=== PATIENT | male | born 1960 | race Caucasian/White ===

== ENCOUNTER 2021-09-26 13:12 | Emergency (ER) | payer OTHER ==
--- NOTE | 2021-09-26 13:33 | EDM.PDOC ---
<Oliver Carney - Last Filed: 09/26/21 15:17> ED HPI GENERAL MEDICAL PROBLEM - General Chief Complaint: General Stated Complaint: DIZZY,WEAK Time Seen by Provider: 09/26/21 13:33 Source of Information: Reports: Patient History Limitations: Reports: No Limitations - History of Present Illness INITIAL COMMENTS - FREE TEXT/NARRATIVE: 61-year-old male history of bradycardia and Covid in the past. He was worked up in the past with echocardiogram stress test and Holter monitors that were within normal limits. Patient also states he had a CT PE done a few days ago that was negative. He came in today because he was at the store when he stood up and felt lightheaded. States he has been eating and drinking as normal and felt that last for few seconds and resolved. He denies any chest pain abdominal pain nausea vomiting or any other symptoms currently - Related Data Allergies Allergy/AdvReac Type Severity Reaction Status Date / Time No Known Allergies Allergy Verified 09/26/21 13:24 Home Meds: Home Meds Aspirin 325 mg PO 09/26/21 [History] Fluticasone Propionate [Flonase] 16 gm NS 09/26/21 [History] Pantoprazole 20 mg PO 09/26/21 [History] Sucralfate [Carafate] 1 gm PO 09/26/21 [History] guaiFENesin [Mucinex] 1,200 mg PO BID 09/26/21 [History] hydroCHLOROthiazide [Hydrochlorothiazide] 12.5 mg PO DAILY 09/26/21 [History] Past Medical History Cardiovascular History: Reports: Other (See Below) Other Cardiovascular History: Bradycardia Respiratory History: Reports: Other (See Below) Other Respiratory History: pt reports wears oxygen a night after covid - Infectious Disease History Infectious Disease History: Reports: None Social & Family History - Family History Family Medical History: No Pertinent Family History - Tobacco Use Tobacco Use Status *Q: Never Tobacco User - Recreational Drug Use Recreational Drug Use: No ED ROS GENERAL - Review of Systems Review Of Systems: See Below Constitutional: Reports: No Symptoms HEENT: Reports: No Symptoms Respiratory: Reports: No Symptoms Cardiovascular: Reports: Lightheadedness Endocrine: Reports: No Symptoms GI/Abdominal: Reports: No Symptoms : Reports: No Symptoms Musculoskeletal: Reports: No Symptoms Skin: Reports: No Symptoms Neurological: Reports: No Symptoms Psychiatric: Reports: No Symptoms Hematologic/Lymphatic: Reports: No Symptoms Immunologic: Reports: No Symptoms ED EXAM, GENERAL - Physical Exam Exam: See Below Exam Limited By: No Limitations General Appearance: Alert, WD/WN, No Apparent Distress Eye Exam: Bilateral Eye: EOMI, PERRL Nose: Normal Inspection, Normal Mucosa Head: Atraumatic Neck: Normal Inspection, Supple, Non-Tender Respiratory/Chest: No Respiratory Distress, Lungs Clear, Normal Breath Sounds Cardiovascular: Normal Peripheral Pulses, Regular Rate, Rhythm GI/Abdominal: Normal Bowel Sounds, Soft, Non-Tender Extremities: Normal Inspection, Normal Range of Motion Neurological: Alert, Oriented, Normal Cognition, Normal Gait Course - Re-Assessments/Exams Free Text/Narrative Re-Assessment/Exam: 09/26/21 14:53 Patient tropes negative x1 patient orthostatics normal. Patient already had extensive work-up with outpatient. If second set of troponins are negative patient will be discharged to follow-up with PMD 09/26/21 15:18 Patient will have second set of troponins done if negative can be discharged home. Patient feels a lot better has not had any lightheadedness here and orthostatic vital signs are normal. Departure - Departure Disposition: Home, Self-Care 01 Condition: Good Clinical Impression: Lightheaded, Hypokalemia - Discharge Information *PRESCRIPTION DRUG MONITORING PROGRAM REVIEWED*: Not Applicable *COPY OF PRESCRIPTION DRUG MONITORING REPORT IN PATIENT GHAZALA: Not Applicable Instructions: Dizziness, [id number], Hypokalemia Referrals: PCP,Not In Area [Primary Care Provider] - Forms: ED Department Discharge Additional Instructions: The following information is given to patients seen in the emergency department who are being discharged to home. This information is to outline your options for follow-up care. We provide all patients seen in our emergency department with a follow-up referral. You were seen today for feeling lightheaded. We checked your labs and vital signs and x-ray they're within normal limits. You had an extensive cardiac work- up as outpatient with stress test echoes CT scans to rule out pulmonary emboli already. We recommend you continue to follow with your primary care physician as needed. The need for follow-up, as well as the timing and circumstances, are variable depending upon the specifics of your emergency department visit. If you don't have a primary care physician on staff, we will provide you with a referral. We always advise you to contact your personal physician following an emergency department visit to inform them of the circumstance of the visit and for follow-up with them and/or the need for any referrals to a consulting specialist. The emergency department will also refer you to a specialist when appropriate. This referral assures that you have the opportunity for follow-up care with a specialist. All of these measure are taken in an effort to provide you with optimal care, which includes your follow-up. Under all circumstances we always encourage you to contact your private physician who remains a resource for coordinating your care. When calling for follow-up care, please make the office aware that this follow-up is from your recent emergency room visit. If for any reason you are refused follow-up, please contact the [facility] Emergency Department at and asked to speak to the emergency department charge nurse. Please follow up with your primary care physician. If you do not have a primary care physician, see below: [facility] [address] [place] [id number] [facility] [address] [place] [id number] Sepsis Event Note (ED) - Evaluation Sepsis Screening Result: No Definite Risk - Assessment/Plan Plan: Patient is a 61-year-old male presents today for feeling lightheaded. Patient has signs of cardiac work-up in the past been ruled out for DVTs has stress test echoes and Holter monitor. He had a history of having a slow heart rate. Heart rates in the 50s but goes up to the 60s and 70s. Will obtain orthostatic h ypertension labs x-rays and reassess. <Nikolai Best - Last Filed: 09/26/21 18:06> Course - Vital Signs Last Recorded V/S: Last Vital Signs Temp 97.5 F 09/26/21 13:18 Pulse 52 L 09/26/21 13:18 Resp 16 09/26/21 13:18 BP 149/83 H 09/26/21 13:18 Pulse Ox 99 09/26/21 13:18 Orthostatic Blood Pressure [ 108/71 Supine] Orthostatic Blood Pressure [ 116/78 Standing] Orthostatic Blood Pressure [ 116/87 Sitting] - Orders/Labs/Meds Orders: Active Orders 24 hr Category Date Time Status Orthostatic Vital Signs [RC] ASDIRECTED Care 09/26/21 13:53 Active Labs: Laboratory Tests 09/26/21 09/26/21 09/26/21 Range/Units 13:44 13:44 16:34 WBC 6.93 (4.0-11.0) K/uL RBC 5.55 (4.50-5.90) M/uL Hgb 16.4 (13.0-17.0) g/dL Hct 46.9 (38.0-50.0) % MCV 84.5 (80.0-98.0) fL MCH 29.5 (27.0-32.0) pg MCHC 35.0 (31.0-37.0) g/dL RDW Std Deviation 42.1 (28.0-62.0) fl RDW Coeff of Miguel 14 (11.0-15.0) % Plt Count 191 (150-400) K/uL MPV 9.70 (7.40-12.00) fL Neut % (Auto) 69.8 (48.0-80.0) % Lymph % (Auto) 19.0 (16.0-40.0) % [place] % (Auto) 9.5 (0.0-15.0) % Eos % (Auto) 1.4 (0.0-7.0) % Baso % (Auto) 0.3 (0.0-1.5) % Neut # (Auto) 4.8 (1.4-5.7) K/uL Lymph # (Auto) 1.3 (0.6-2.4) K/uL [place] # (Auto) 0.7 (0.0-0.8) K/uL Eos # (Auto) 0.1 (0.0-0.7) K/uL Baso # (Auto) 0.0 (0.0-0.1) K/uL Nucleated RBC % 0.0 /100WBC Nucleated RBCs # 0 K/uL Sodium 140 (136-148) mmol/L Potassium 3.1 L (3.5-5.1) mmol/L Chloride 101 (98-107) mmol/L Carbon Dioxide 31.0 (21.0-32.0) mmol/L BUN 16 (7.0-18.0) mg/dL Creatinine 1.1 (0.8-1.3) mg/dL Est Cr Clr Drug Dosing 79.36 mL/min Estimated GFR (MDRD) > 60.0 ml/min Glucose 144 H (74-106) mg/dL Calcium 9.5 (8.5-10.1) mg/dL Phosphorus 3.5 (2.6-4.7) mg/dL Magnesium 2.0 (1.8-2.4) mg/dL Total Bilirubin 1.4 H (0.2-1.0) mg/dL AST 11 L (15-37) IU/L ALT 21 (14-63) IU/L Alkaline Phosphatase 52 (46-116) U/L Creatine Kinase 82 (26-308) U/L Troponin I < 0.050 < 0.050 (0.000-0.056) ng/mL Total Protein 7.4 (6.4-8.2) g/dL Albumin 4.0 (3.4-5.0) g/dL Globulin 3.4 (2.6-4.0) g/dL Albumin/Globulin Ratio 1.2 (0.9-1.6) Meds: Medications Discontinued Medications Generic Name Dose Route Start Last Admin Trade Name Freq PRN Reason Stop Dose Admin Potassium Chloride 40 meq 09/26/21 17:56 09/26/21 18:03 Potassium Chloride 20 Meq Tab.Er PO 09/26/21 17:57 40 meq ONETIME ONE Administration Departure - Departure Time of Disposition: 18:05 Sepsis Event Note (ED) - Focused Exam Vital Signs: Vital Signs Temp Pulse Resp BP Pulse Ox 09/26/21 13:18 97.5 F 52 L 16 149/83 H 99
--- NOTE | 2021-09-26 13:34 | PCM.EKG ---
#1 Interpretation EKG Date: 09/26/21 Time: 13:19 Rhythm: NSR Rate (Beats/Min): 56 ST-T: Normal
[2021-09-26 14:19] LABS: BLOOD UREA NITROGEN,BUN 16 mg/dL (7.0-18.0); CHLORIDE,CL 101 mmol/L (98-107); GLUCOSE RANDOM 144 mg/dL (74-106); POTASSIUM,K 3.1 mmol/L (3.5-5.1); SODIUM,NA 140 mmol/L (136-148)
--- NOTE | 2021-09-26 14:45 | CR ---
INDICATION: Lightheadedness. TECHNIQUE: Chest 1 view. COMPARISON: None FINDINGS: The cardiac silhouette is prominent. Mediastinal contour is normal. Pulmonary vascularity appears grossly normal. Right lung is hypoinflated. Elevation of the right hemidiaphragm. Right lung appears grossly clear. No pneumothorax identified. No right pleural effusion. Left hemidiaphragm is partially obscured which could reflect left bibasilar atelectasis or consolidation. IMPRESSION: Left hemidiaphragm is partially obscured which could reflect left basilar atelectasis or consolidation. Findings could also be artifactual secondary to overlying soft tissue/patient body habitus. Consider two-view chest in good inspiration when clinically feasible. Dictated by Anil Thomas MD @ 09/26/2021 2:43:10 PM (Electronically Signed)
[2021-09-26] MEDS ORDERED: Potassium Chloride 20 MEQ Tab.ER PO ONE (17:56)
== END 2021-09-26 18:12 | disposition home or self-care (01) ==
LOC: MW.ED 13:12
DX: E87.6 Hypokalemia (principal); R42 Dizziness and giddiness
CPT/HCPCS: 36415; 71045; 80053; 82550; 83735; 84100; 84484; 85025; 93005; 99284; A9270